=== PATIENT | female | born 1985 | race Caucasian/White ===

== ENCOUNTER 2022-10-30 18:33 | Observation (INO) ==
[2022-10-30] MEDS ORDERED: ONDANSETRON INJ 2 MG/ML 2 ML VIAL IV STA (19:37)
[2022-10-30] MEDS ORDERED: SODIUM CHLORIDE 0.9% 1000ML 1,000 ML IV ONE (19:37)
--- NOTE | 2022-10-30 19:41 | Emergency Department Note ---
Impression & Plan Abdominal pain, Anemia ED Provider Note HISTORY OF PRESENT ILLNESS: Patient is a 37-year-old female presenting with abdominal pain and poor oral intake. Patient reports generalized abdominal pain for the last month. She reports she has been unable to tolerate oral intake for the last month and almost immediately vomits after eating or drinking. She reports she stopped the PEG tube over a decade ago after being on life support but that has been removed. Reports that she was seen in [facility] a week ago with normal work-up and was discharged. Reports that she is having significant pain and nausea. Reports that anytime she drinks or eats anything it immediately comes back up. Denies any fevers. Denies any changes in bowel habits. Denies any dysuria or hematuria ROS: as above PHYSICAL EXAM: Constitutional: Patient appears in no acute distress. HENT: Head: Normocephalic and atraumatic. Eyes: EOMI, PERRL Mouth/Throat: Mucous membranes moist. Neck: Trachea midline. Neck supple. Cardiovascular: RRR, No murmurs, rubs or gallops. Intact distal pulses. Pulmonary/Chest: No respiratory distress. Breath sounds clear and equal bilaterally. No wheezes or rales. Abdominal: BS +. Abdomen soft, no rebound or guarding. Generalized TTP. Musculoskeletal: No edema, tenderness or deformity noted. Skin: Warm and dry. No rash, erythema, pallor or cyanosis Psychiatric: Appropriate mood and affect for situation. Neurological: Alert and keenly responsive. CN II-XII grossly intact, moving all extremities equally and fully. MDM: - Vitals signs showed borderline tachycardia. - History obtained via patient. Patient presents with generalized abdominal pain and poor oral intake. Reports symptoms of been ongoing for the last month and she has been unable to tolerate any solids or liquids by mouth. She reports that she was evaluated a week ago at [facility] and had a negative work- up. Reports having continued symptoms, prompting presentation today. - Chronic conditions affecting care: none - Differential diagnoses include, but are not limited to: aortic aneurysm; diverticulitis; ischemic colitis; ovarian cyst; ureteral calculi; small bowel obstruction; gastritis; cholecystitis; viral syndrome - Order placed for continuous cardiac monitoring. At this time, monitor showed rate of 91 bpm with normal sinus rhythm, per my interpretation. - External medical records reviewed. Patient has not previously been seen in our facility. - Laboratory workup interpreted by myself showed normal WBC; anemia (Hgb 6.8); hypokalemia (K 3.4); normal creatinine; normal lipase - COVID negative - CT abdomen/pelvis with IV contrast showed right adnexal cyst. No other acute pathology - Patient given 50 mcg IV fentanyl in ER for pain control. - Discussed results with patient. I have verbally consented her for blood products. She has never had a blood transfusion before. On discussion, she denies any melena, hematochezia or vaginal bleeding - Ordered 2 units packed red blood cells for the patient - Discussion was had with group social worker about patient's case and need for admission. - Hospitalist, Dr. Munoz, consulted for admission. - [facility] I provided 32 minutes of critical care time to this patient's care outside of billable procedures. ASSESSMENT AND PLAN: Diagnosis: abdominal pain; anemia requiring transfusion Plan: admit Past Med/Surg History Social History Smoking Status: Current every day smoker Feels Safe at Home: Yes Results & Data (ED) Vital Signs Vital Signs - 24 hr 10/30/22 18:35 10/30/22 19:37 10/30/22 20:11 Temperature 36.8 C Temperature Source Temporal Artery Scan Pulse Rate 93 H 52 L Pulse Rate from SpO2 Sensor Respiratory Rate 20 Respiratory Effort / Characteristics Non-Labored Spontaneous Respiratory Depth Normal Blood Pressure 121/77 Blood Pressure Mean 91 Pulse Oximetry 98 99 Oxygen Delivery Method Room Air Room Air Sepsis Recent Fever Within 48 Hours No Sepsis New/Unexplained Change in Mental Status No Sepsis Action Taken by Nursing No Action Required 10/30/22 20:02 10/30/22 20:30 10/30/22 20:31 Temperature Temperature Source Pulse Rate 69 Pulse Rate from SpO2 Sensor 58 L 66 Respiratory Rate 26 H 19 Respiratory Effort / Characteristics Respiratory Depth Blood Pressure 113/60 Blood Pressure Mean 77 Pulse Oximetry 94 100 Oxygen Delivery Method Sepsis Recent Fever Within 48 Hours Sepsis New/Unexplained Change in Mental Status Sepsis Action Taken by Nursing 10/30/22 20:31 10/30/22 21:00 10/30/22 21:00 Temperature Temperature Source Pulse Rate 67 56 L Pulse Rate from SpO2 Sensor 63 55 L Respiratory Rate 23 17 Respiratory Effort / Characteristics Respiratory Depth Blood Pressure 111/61 Blood Pressure Mean 77 Pulse Oximetry 97 Oxygen Delivery Method Room Air Sepsis Recent Fever Within 48 Hours Sepsis New/Unexplained Change in Mental Status Sepsis Action Taken by Nursing 10/30/22 21:30 10/30/22 21:30 10/30/22 22:00 Temperature Temperature Source Pulse Rate 61 Pulse Rate from SpO2 Sensor 61 Respiratory Rate 16 Respiratory Effort / Characteristics Respiratory Depth Blood Pressure 112/63 130/70 Blood Pressure Mean 79 90 Pulse Oximetry 96 Oxygen Delivery Method Sepsis Recent Fever Within 48 Hours Sepsis New/Unexplained Change in Mental Status Sepsis Action Taken by Nursing 10/30/22 22:00 10/30/22 22:30 10/30/22 22:30 Temperature Temperature Source Pulse Rate 52 L 51 L Pulse Rate from SpO2 Sensor 51 L 50 L Respiratory Rate 14 14 Respiratory Effort / Characteristics Respiratory Depth Blood Pressure 127/77 Blood Pressure Mean 93 Pulse Oximetry 97 97 Oxygen Delivery Method Room Air Sepsis Recent Fever Within 48 Hours Sepsis New/Unexplained Change in Mental Status Sepsis Action Taken by Nursing 10/30/22 23:00 10/30/22 23:06 Temperature Temperature Source Pulse Rate 60 68 Pulse Rate from SpO2 Sensor Respiratory Rate 21 22 Respiratory Effort / Characteristics Respiratory Depth Blood Pressure 118/67 Blood Pressure Mean 84 Pulse Oximetry 100 Oxygen Delivery Method Sepsis Recent Fever Within 48 Hours Sepsis New/Unexplained Change in Mental Status Sepsis Action Taken by Nursing Laboratory Data 10/30/22 19:55 10/30/22 19:55 Lab Results 10/30/22 10/30/22 10/30/22 Range/Units 19:55 19:55 19:55 WBC 5.26 (4.8-10.8) K/ul RBC 4.11 L (4.20-5.40) M/uL Hgb 6.8 L* (12.0-16.0) g/dl Hct 24.5 L (37.0-47.0) % MCV 59.6 L (80.0-100.0) fL MCH 16.5 L (25.0-34.0) pg MCHC 27.8 L (32.0-36.0) g/dL RDW Std Deviation 42.9 (36.4-46.3) fL RDW Coeff of Mickey 21.3 H (11.5-14.5) % Plt Count 395 (130-400) K/uL MPV 9.4 (9.4-12.4) fL Immature Gran % (Auto) 0.2 % Neut % (Auto) 57.9 % Lymph % (Auto) 31.6 % [place] % (Auto) 9.9 % Eos % (Auto) 0.0 % Baso % (Auto) 0.4 % Neut # (Auto) 3.05 (1.40-6.50) K/uL Lymph # (Auto) 1.66 (1.2-3.4) K/uL [place] # (Auto) 0.52 (0.11-0.59) K/uL Eos # (Auto) 0.00 (0-0.50) K/uL Baso # (Auto) 0.02 (0-0.2) K/uL Immature Gran # (Auto) 0.01 (0.01-0.20) K/uL Hypochromasia Present Anisocytosis Present Microcytosis Present Sodium 139 (136-145) mmol/L Potassium 3.4 L (3.5-5.1) mmol/L Chloride 111 H (98-107) mmol/L Carbon Dioxide 26 (21-32) mmol/L Anion Gap 2 L (3-11) BUN 8 (6-23) mg/dl Creatinine 0.68 (0.6-1.2) mg/dl Est Cr Clr Drug Dosing Not Reportable Est GFR ( Amer) 127.7 ml/min Est GFR (Non-Af Amer) 110.2 ml/min BUN/Creatinine Ratio 11.8 (10-20) Glucose 87 (70-99(Fasting)) mg/dl Lactate 0.9 (0.4-2.0) mmol/L Calcium 8.1 L (8.6-10.3) mg/dl Total Bilirubin 0.2 (0.2-1.0) mg/dl AST 13 (13-39) U/L ALT 7 (7-52) U/L Alkaline Phosphatase 49 (34-104) U/L Total Protein 6.5 (6.0-8.3) gm/dl Albumin 3.2 L (3.4-5.0) gm/dl Globulin 3.3 (2.5-4.0) gm/dl Albumin/Globulin Ratio 1.0 (0.9-2) Lipase 77 (11-82) U/L SARS-CoV-2, RNA, NAAT (NEGATIVE) Blood Type Antibody Screen Crossmatch 10/30/22 10/30/22 Range/Units 19:55 21:43 WBC (4.8-10.8) K/ul RBC (4.20-5.40) M/uL Hgb (12.0-16.0) g/dl Hct (37.0-47.0) % MCV (80.0-100.0) fL MCH (25.0-34.0) pg MCHC (32.0-36.0) g/dL RDW Std Deviation (36.4-46.3) fL RDW Coeff of Mickey (11.5-14.5) % Plt Count (130-400) K/uL MPV (9.4-12.4) fL Immature Gran % (Auto) % Neut % (Auto) % Lymph % (Auto) % [place] % (Auto) % Eos % (Auto) % Baso % (Auto) % Neut # (Auto) (1.40-6.50) K/uL Lymph # (Auto) (1.2-3.4) K/uL [place] # (Auto) (0.11-0.59) K/uL Eos # (Auto) (0-0.50) K/uL Baso # (Auto) (0-0.2) K/uL Immature Gran # (Auto) (0.01-0.20) K/uL Hypochromasia Anisocytosis Microcytosis Sodium (136-145) mmol/L Potassium (3.5-5.1) mmol/L Chloride (98-107) mmol/L Carbon Dioxide (21-32) mmol/L Anion Gap (3-11) BUN (6-23) mg/dl Creatinine (0.6-1.2) mg/dl Est Cr Clr Drug Dosing Est GFR ( Amer) ml/min Est GFR (Non-Af Amer) ml/min BUN/Creatinine Ratio (10-20) Glucose (70-99(Fasting)) mg/dl Lactate (0.4-2.0) mmol/L Calcium (8.6-10.3) mg/dl Total Bilirubin (0.2-1.0) mg/dl AST (13-39) U/L ALT (7-52) U/L Alkaline Phosphatase (34-104) U/L Total Protein (6.0-8.3) gm/dl Albumin (3.4-5.0) gm/dl Globulin (2.5-4.0) gm/dl Albumin/Globulin Ratio (0.9-2) Lipase (11-82) U/L SARS-CoV-2, RNA, NAAT NEGATIVE (NEGATIVE) Blood Type AB Positive Antibody Screen NEGATIVE Crossmatch See Detail Administered Medications Discontinued Medications Sodium Chloride (Nss 1000ml) 1,000 mls @ 999 mls/hr IV .Q1H1M ONE Stop: 10/30/22 20:37 Last Infusion: 10/30/22 21:24 Dose: 0 mls/hr Documented By: Admin: 10/30/22 19:53 Dose: 999 mls/hr Documented By: CARRIE Ioversol (Optiray 350 100ml) 82 ml IV ONCE ONE Stop: 10/30/22 21:11 Last Admin: 10/30/22 21:11 Dose: 82 ml Documented By: VIKY Ondansetron HCl (Ondansetron Inj 2 Mg/Ml 2 Ml Vial) 4 mg IV NOW STA Stop: 10/30/22 19:38 Last Admin: 10/30/22 19:53 Dose: 4 mg Documented By: CARRIE Imaging Data Radiologist's Impression: Abdomen/Pelvis CT 10/30/22 19:37 Exam(s): CT ABDOMEN + PELVIS With Contrast IV Amt: 82ml EXAM: CT Abdomen and Pelvis With Intravenous Contrast CLINICAL HISTORY: Reason for exam: generalized abdominal pain; N/V. TECHNIQUE: Axial computed tomography images of the abdomen and pelvis with intravenous contrast. CTDI is 5.87 mGy and DLP is 323.36 mGy-cm. Automated exposure control was utilized for the study. A dose lowering technique was utilized adhering to the principles of ALARA. CONTRAST: Patient received 82ml of IV contrast COMPARISON: No relevant prior studies available. FINDINGS: Lung bases: Unremarkable. No mass. No consolidation. ABDOMEN: Liver: Unremarkable. No mass. Gallbladder and bile ducts: Unremarkable. No calcified stones. No ductal dilation. Pancreas: Unremarkable. No mass. No ductal dilation. Spleen: Unremarkable. No splenomegaly. Adrenals: Unremarkable. No mass. Kidneys and ureters: Unremarkable. No solid mass. No hydronephrosis. Stomach and bowel: Unremarkable. No obstruction. No mucosal thickening. PELVIS: Appendix: Appendix not visualized. No pericecal inflammation. Bladder: Unremarkable. No mass. Reproductive: Uterus is unremarkable. Right adnexal cyst measuring 5.1 cm. ABDOMEN and PELVIS: Intraperitoneal space: Unremarkable. No free air. No significant fluid collection. Bones/joints: No acute fracture. No dislocation. Soft tissues: Unremarkable. Vasculature: Unremarkable. No abdominal aortic aneurysm. Lymph nodes: Unremarkable. No enlarged lymph nodes. IMPRESSION: 1. Right adnexal cyst measuring 5.1 cm. This can be further evaluated with pelvic ultrasound. 2. No acute inflammatory process. Electronically signed by: Isabell Fraser M.D. 10/30/22 21:51 PM Discharge Plan Visit Data Chief Complaint: Dehydration Stated Complaint: DEHYDRATED,VOMIT,L SIDE PAIN ED Provider: Aimee Neal Discharge Problem: Abdominal pain, Anemia Forms Stand Alone Forms: Count Includes [facility] Referrals Referrals: PCP,NO [Primary Care Provider] -
[2022-10-30 20:39] LABS: Hematocrit (blood only) 24.5 % (37.0-47.0); Hemoglobin 6.8 g/dl (12.0-16.0); Mean Corpuscular Hemoglobin 16.5 pg (25.0-34.0); Mean Corpuscular Hgb Conc 27.8 g/dL (32.0-36.0); Mean Corpuscular Volume 59.6 fL (80.0-100.0); Mean Platelet Volume 9.4 fL (9.4-12.4); Platelet Count 395 K/uL (130-400); RDW Coefficient of Variation 21.3 % (11.5-14.5); RDW Standard Deviation 42.9 fL (36.4-46.3); Red Blood Count 4.11 M/uL (4.20-5.40); White Blood Count 5.26 K/ul (4.8-10.8)
[2022-10-30 20:46] LABS: Alanine Aminotransferase 7 U/L (7-52); Albumin Level 3.2 gm/dl (3.4-5.0); Alkaline Phosphatase 49 U/L (34-104); Anion Gap 2 (3-11); Aspartate Aminotransferase 13 U/L (13-39); BUN Creatinine Ratio 11.8 (10-20); Bilirubin,Total 0.2 mg/dl (0.2-1.0); Blood Urea Nitrogen 8 mg/dl (6-23); Calcium 8.1 mg/dl (8.6-10.3); Carbon Dioxide 26 mmol/L (21-32); Chloride 111 mmol/L (98-107); Est GFR (African American) 127.7 ml/min; Est GFR (Non-African American) 110.2 ml/min; Globulin 3.3 gm/dl (2.5-4.0); Glucose 87 mg/dl (70-99(Fasting)); Lipase 77 U/L (11-82); Potassium 3.4 mmol/L (3.5-5.1); Sodium 139 mmol/L (136-145); Total Protein 6.5 gm/dl (6.0-8.3)
[2022-10-30] MEDS ORDERED: OPTIRAY 350 100ml IV ONE (21:10)
--- NOTE | 2022-10-30 21:52 | CT Scan Report ---
Exam(s): CT ABDOMEN + PELVIS With Contrast IV Amt: 82ml EXAM: CT Abdomen and Pelvis With Intravenous Contrast CLINICAL HISTORY: Reason for exam: generalized abdominal pain; N/V. TECHNIQUE: Axial computed tomography images of the abdomen and pelvis with intravenous contrast. CTDI is 5.87 mGy and DLP is 323.36 mGy-cm. Automated exposure control was utilized for the study. A dose lowering technique was utilized adhering to the principles of ALARA. CONTRAST: Patient received 82ml of IV contrast COMPARISON: No relevant prior studies available. FINDINGS: Lung bases: Unremarkable. No mass. No consolidation. ABDOMEN: Liver: Unremarkable. No mass. Gallbladder and bile ducts: Unremarkable. No calcified stones. No ductal dilation. Pancreas: Unremarkable. No mass. No ductal dilation. Spleen: Unremarkable. No splenomegaly. Adrenals: Unremarkable. No mass. Kidneys and ureters: Unremarkable. No solid mass. No hydronephrosis. Stomach and bowel: Unremarkable. No obstruction. No mucosal thickening. PELVIS: Appendix: Appendix not visualized. No pericecal inflammation. Bladder: Unremarkable. No mass. Reproductive: Uterus is unremarkable. Right adnexal cyst measuring 5.1 cm. ABDOMEN and PELVIS: Intraperitoneal space: Unremarkable. No free air. No significant fluid collection. Bones/joints: No acute fracture. No dislocation. Soft tissues: Unremarkable. Vasculature: Unremarkable. No abdominal aortic aneurysm. Lymph nodes: Unremarkable. No enlarged lymph nodes. IMPRESSION: 1. Right adnexal cyst measuring 5.1 cm. This can be further evaluated with pelvic ultrasound. 2. No acute inflammatory process. Electronically signed by: Isabell Fraser M.D. 10/30/22 21:51 PM
[2022-10-30] MEDS ORDERED: SODIUM CHLORIDE 0.9% 250 ML IV PRN (22:11)
[2022-10-30 22:31] LABS: Anisocytosis Present; Basophils # (auto) 0.02 K/uL (0-0.2); Basophils % (auto) 0.4 %; Hypochromasia Present; Immature Granulocytes # (auto) 0.01 K/uL (0.01-0.20); Immature Granulocytes % (auto) 0.2 %; Lymphocytes # (auto) 1.66 K/uL (1.2-3.4); Lymphocytes % (auto) 31.6 %; Microcytosis Present; Monocytes # (auto) 0.52 K/uL (0.11-0.59); Monocytes % (auto) 9.9 %; Neutrophils # (auto) 3.05 K/uL (1.40-6.50); Neutrophils % (auto) 57.9 %
[2022-10-30] MEDS ORDERED: fentaNYL citrate PF 100 MCG/2 ML VIAL IV ONE (23:12)
[2022-10-31] MEDS ORDERED: NITROGLYCERIN SL 0.4 MG/TAB TAB SL PRN (01:59)
[2022-10-31] MEDS ORDERED: ACETAMINOPHEN 325 MG TAB PO PRN (01:59)
[2022-10-31 02:21] LABS: Appearance Urine Clear (Clear); Bilirubin Urine Negative (Negative); Blood Urine Negative (Negative); Color Urine Yellow; Glucose Urine UA Negative (Negative); Ketones Urine Negative (Negative); Leukocyte Esterase Urine Negative (Negative); Nitrite Urine Negative (Negative); Protein Urine Negative (Negative); Specific Gravity Urine 1.042 (1.000-1.030); Urobilinogen Urine Negative (Negative)
[2022-10-31] MEDS: POTASSIUM CHLORIDE / WTR 10 MEQ/100 ML PLCT IV SCH ×2 (03:00→04:53)
[2022-10-31] MEDS: ONDANSETRON INJ 2 MG/ML 2 ML VIAL IV PRN ×2 (03:00→21:01)
[2022-10-31] MEDS: HYDROmorphone INJ 0.5 MG/0.5 ML SYR IV PRN ×5 (03:00→22:15)
[2022-10-31] MEDS: D5W AND NSS 1,000 ML IV SCH ×4 (06:15→22:21)
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
[2022-10-31 07:38] LABS: Hematocrit (blood only) 34.7 % (37.0-47.0); Hemoglobin 10.5 g/dl (12.0-16.0); Mean Corpuscular Hgb Conc 30.3 g/dL (32.0-36.0); Mean Corpuscular Volume 62.9 fL (80.0-100.0); Mean Platelet Volume 9.3 fL (9.4-12.4); Platelet Count 370 K/uL (130-400); RDW Coefficient of Variation 24.7 % (11.5-14.5); RDW Standard Deviation 52.7 fL (36.4-46.3); Red Blood Count 5.52 M/uL (4.20-5.40); White Blood Count 6.19 K/ul (4.8-10.8)
[2022-10-31 07:44] LABS: BUN Creatinine Ratio 13.7 (10-20); Calcium 8.1 mg/dl (8.6-10.3); Creatinine Clr Calc Pharmacy 136.3 ml/min; Est GFR (African American) 140.4 ml/min; Est GFR (Non-African American) 121.1 ml/min; Magnesium 1.8 mg/dl (1.7-2.4)
[2022-10-31 07:50] LABS: Iron 302 mcg/dl (35-150); Unsaturated Iron Binding Cap < 55 mcg/dl (155-355)
[2022-10-31] MEDS: BACLOFEN 10 MG TAB PO SCH ×3 (07:52→20:58)
[2022-10-31] MEDS: levETIRAcetam 250 MG TAB PO SCH ×2 (07:53→20:59)
[2022-10-31 08:02] LABS: Basophils # (auto) 0.03 K/uL (0-0.2); Basophils % (auto) 0.5 %; Echinocytes 1+; Immature Granulocytes # (auto) 0.02 K/uL (0.01-0.20); Immature Granulocytes % (auto) 0.3 %; Lymphocytes # (auto) 1.65 K/uL (1.2-3.4); Lymphocytes % (auto) 26.7 %; Monocytes % (auto) 9.7 %; Neutrophils # (auto) 3.89 K/uL (1.40-6.50); Neutrophils % (auto) 62.8 %
[2022-10-31 08:04] LABS: Ferritin 4.9 ng/ml (8-388)
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
[2022-10-31] MEDS: NICOTINE 14 MG/24 HR PATCH TD SCH (10:29)
[2022-10-31 10:33] LABS: Pregnancy Test, Serum Negative (Negative)
--- NOTE | 2022-10-31 14:17 | Communication Note ---
Date of Service: October 31, 2022 Patient seen and examined at bedside. She was lying in the bed comfortably; not in any distress. Reports pain on left upper side. Reports that her vomiting is slightly improved after admission. On examination Alert oriented x3 Chest-bilateral clear basal breath sound Abdomenslight tenderness present on the left upper side . Scar makayla from PEG tube present CVSS1-S2, no murmur Neurogrossly intact Assessment/plan Iron deficiency anemia; review of past records shows progressive anemia. Work- up suggestive of iron deficiency anemia. Evaluated by GI. Recommend twice daily PPI and outpatient follow-up for endoscopy. CT abdomen showed Right adnexal cyst measuring 5.1 cm; gynecology consult; will follow up on reccs
[2022-10-31] MEDS: PANTOprazole 40 MG TAB PO SCH (20:59)
[2022-10-31] MEDS ORDERED: traZODone HCL 100 MG TAB PO SCH (21:00)
[2022-11-01] MEDS: HYDROmorphone INJ 0.5 MG/0.5 ML SYR IV PRN ×2 (04:13→08:04)
[2022-11-01] MEDS: ONDANSETRON INJ 2 MG/ML 2 ML VIAL IV PRN (04:13)
[2022-11-01 07:28] LABS: Basophils # (auto) 0.02 K/uL (0-0.2); Basophils % (auto) 0.4 %; Hematocrit (blood only) 31.3 % (37.0-47.0); Hemoglobin 9.5 g/dl (12.0-16.0); Immature Granulocytes # (auto) 0.02 K/uL (0.01-0.20); Immature Granulocytes % (auto) 0.4 %; Lymphocytes # (auto) 1.28 K/uL (1.2-3.4); Lymphocytes % (auto) 26.2 %; Mean Corpuscular Hemoglobin 18.8 pg (25.0-34.0); Mean Corpuscular Hgb Conc 30.4 g/dL (32.0-36.0); Mean Corpuscular Volume 62.1 fL (80.0-100.0); Monocytes # (auto) 0.52 K/uL (0.11-0.59); Monocytes % (auto) 10.7 %; Neutrophils # (auto) 3.04 K/uL (1.40-6.50); Neutrophils % (auto) 62.3 %; RDW Coefficient of Variation 24.3 % (11.5-14.5); RDW Standard Deviation 51.8 fL (36.4-46.3); Red Blood Count 5.04 M/uL (4.20-5.40); White Blood Count 4.88 K/ul (4.8-10.8)
[2022-11-01 07:42] LABS: Albumin Level 2.9 gm/dl (3.4-5.0); BUN Creatinine Ratio 8.3 (10-20); Bilirubin,Total 0.3 mg/dl (0.2-1.0); Calcium 7.9 mg/dl (8.6-10.3); Creatinine Clr Calc Pharmacy 136.9 ml/min; Est GFR (African American) 143.2 ml/min; Est GFR (Non-African American) 123.6 ml/min; Globulin 2.8 gm/dl (2.5-4.0); Potassium 3.4 mmol/L (3.5-5.1); Total Protein 5.7 gm/dl (6.0-8.3)
[2022-11-01 07:51] LABS: Mean Platelet Volume 9.2 fL (9.4-12.4); Platelet Count 335 K/uL (130-400); RBC Morphology Unremarkable
[2022-11-01] MEDS: BACLOFEN 10 MG TAB PO SCH (08:02)
[2022-11-01] MEDS: levETIRAcetam 250 MG TAB PO SCH (08:03)
[2022-11-01] MEDS: D5W AND NSS 1,000 ML IV SCH (08:03)
[2022-11-01] MEDS: NICOTINE 14 MG/24 HR PATCH TD SCH (08:04)
[2022-11-01] MEDS: PANTOprazole 40 MG TAB PO SCH (08:04)
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
== END 2022-11-01 11:36 | disposition home or self-care (01) | DRG 812 ==
LOC: ED 18:33 → 2N 10-31 00:13 → INTOOBSV 10-31 00:13 → 2N 10-31 01:34